=== PATIENT | female | born 1980 | race Caucasian/White ===

== ENCOUNTER → 2021-04-02 | Outpatient (CLI) | payer OTHER ==
[~2021-04-02] MED LIST: ATENOLOL 50MG T50 M1 PO; ISIBLOOM 28 DA1 EACH PO; LIPITOR10 MG PO; METFORMIN HCL500 M1 PO
[2021-04-02 13:24] LABS: HEMATOCRIT 40.3 % (37.0-47.0); HEMOGLOBIN 13.3 gm/dL (12.0-15.0); MCH 30.1 pg (26.0-34.0); MCV 91.2 fL (80.0-100.0); RBC 4.42 mil/uL (4.20-5.00); WBC 14.6 thou/uL (4.0-11.0)
[2021-04-02 13:43] LABS: ALBUMIN 3.6 g/dL (3.4-5.0); CALCIUM 9.3 mg/dL (8.5-10.1); CREATININE 0.7 mg/dL (0.6-1.0); POTASSIUM 4.5 mmol/L (3.5-5.1); TOTAL BILIRUBIN 0.7 mg/dL (0.2-1.0); TOTAL PROTEIN 7.3 g/dL (6.4-8.2)
== END ==
LOC: LAB 11:31 → PAC 14:12 → LAB 14:13
PROVIDERS: Student in an Organized Health Care Education/Training Program; ATTEND Surgery
DX: Z01.812 Encounter for preprocedural laboratory examination (principal); Z20.822 Contact with and (suspected) exposure to COVID-19; Z90.49 Acquired absence of other specified parts of digestive tract

== ENCOUNTER → 2021-04-05 | Day surgery (SDC) | payer OTHER ==
[~2021-04-05] VITALS: Ht 170.2 cm; Wt 137.9 kg
[~2021-04-05] MED LIST changes: +ACETAMINOPHEN325 M1 PO; +COLACE 100 MG100 MG PO; +IBUPROFEN 200200 M1 PO; +MIRALAX17 GM PO; +OXYCODONE HCL 55 MG PO
[2021-04-05 07:02] VITALS: BP 128/87
[2021-04-05 09:22] VITALS: BP 128/87
--- NOTE | 2021-04-05 10:01 | EKG ---
[place] [address] [facility] [place] [address] ELECTROCARDIOGRAM REPORT Name: JJ NAVARRO Room #: REG [facility].R.#: [id number] Admission: 04/05/21 Attend Phys: Gatito Morales MD Discharge: Date of : 78 Report #: [id number] 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
--- NOTE | 2021-04-08 17:06 | PATH ---
[facility] [address] [place] [address] PATHOLOGY RPT PROCEDURE Name: JJ NAVARRO Room #: [facility] M.R.#: [id number] Admission: 04/05/21 Date of : 78 Discharge: Report #: [id number] Path Case #: [id number] [facility] Accession Number: [id number] . 01 Material submitted: . gallbladder - GALLBLADDER . 01 Clinical history: . LAPARCOPIC CHOLECYSTECTOMY . 02 Diagnosis: Gallbladder, excision: - Chronic cholecystitis; negative for malignancy. - Lithiasis. ([facility]; 04/08/2021) [facility] 04/08/2021 1402 Local . 02 Electronically signed: . Moises Belcher MD, Pathologist NPI- [id number] . 01 Gross description: . Fixative: Formalin Labeled: Gallbladder Specimen received: A previously opened gallbladder Dimensions: 3.1 x 3.5 x 3.0 cm Serosa: [place]-yellow to purple-hardy and smooth to slightly roughened with a severe amount of previously adipose tissue Lymph node: Not identified Mucosa: Red-montalvo and roughened Average wall thickness: Up to 0.8 cm Calculi: Multiple present displaying a black, multifaceted appearance with multiple lodged within the cystic duct Abnormalities: None identified . A1- Supervisor Delivery Department body, fundus, and the cystic duct margin. ([facility]; 04/05/2021) NRI/NRI 04/05/2021 1818 Local . 02 Pathologist provided ICD-10: K80.10 . 02 CPT . 623835 Specimen Comment: A courtesy copy of this report has been sent to [phone] Specimen Comment: Report sent to Performed at: [address] [address] PATHOLOGY RPT PROCEDURE Name: JJ NAVARRO Room #: [facility] M.R.#: [id number] Admission: 04/05/21 Date of : 78 Discharge: Report #: [id number] Path Case #: [id number] [facility] [address] [id number] MD Óscar Ervin MD Phone: [phone] Performed at: 02 [facility] [address] [id number] MD Gm Roque MD Phone: [phone]
== END | disposition home or self-care (01) ==
LOC: OR
PROVIDERS: ATTEND Surgery
DX: K80.10 Calculus of gallbladder with chronic cholecystitis without obstruction (principal); I10 Essential (primary) hypertension; E78.5 Hyperlipidemia, unspecified; E11.9 Type 2 diabetes mellitus without complications; K21.9 Gastro-esophageal reflux disease without esophagitis; E66.01 Morbid (severe) obesity due to excess calories; Z98.890 Other specified postprocedural states; Z79.899 Other long term (current) drug therapy; Z68.42 Body mass index [BMI] 45.0-49.9, adult; Z88.0 Allergy status to penicillin; Z88.2 Allergy status to sulfonamides
CPT/HCPCS: 50010; 50101; 50411; 50555; 51489; 52265; 52266; 53307; 53310; 53312; 54022; 54118; 56462; 56525; 56526; 56530; 58574; 58910; 62110; 62900; 70005